=== PATIENT | female | born 1985 | race Caucasian/White ===

== ENCOUNTER 2018-04-16 01:35 | Emergency (ER) | payer BC ==
[2018-04-16 02:10] LABS: #Basophils 0.1 thou/uL (0.0-0.2); #Eosinphils 0.2 thou/uL (0.0-0.7); #Lymphocytes 3.6 thou/uL (1.20-3.40); #Monocytes 0.8 thou/uL (0.11-0.59); #Neutrophils 3.7 thou/uL (1.40-6.50); %Basophils 0.8 % (0.0-1.0); %Eosinophils 1.9 % (0.0-10.0); %Lymphocytes 43.2 % (21.0-51.0); %Neutrophils 44.2 % (42.0-75.0); Hemoglobin 14.5 g/dL (12.0-16.0); Mean Corpuscular HGB CONC 34.7 g/dL (32.0-36.0); Mean Corpuscular Hemoglobin 31.5 pg (27.0-31.0); Mean Corpuscular Volume 90.9 fL (78.0-98.0); Mean Platelet Volume 7.3 fL (7.4-10.4); Platelet Count 299 thou/uL (130-400); RBC Distribution Width 10.6 % (11.5-14.5); White Blood Cell (WBC) Count 8.3 thou/uL (4.8-10.8)
[2018-04-16 02:28] LABS: BHCG - Serum Negative (NEGATIVE); Pregs Control Background? CLEAR/WHITE (CLR/WHITE); Pregs Control Bar Appear? YES (CONTROL BAR)
[2018-04-16 02:33] LABS: ALT (SGPT) 34 U/L (8-55); AST (SGOT) 27 U/L (5-34); Albumin 4.9 g/dL (3.5-5.0); Alkaline Phosphatase 69 U/L (40-150); Anion Gap 16 mmol/L (10-20); BUN (Urea Nitrogen) 12 mg/dL (7.0-18.7); Bilirubin, Total 0.4 mg/dL (0.2-1.2); CK (CPK) 70 U/L (29-168); Calc. Creatinine Clearance 0 mL/min (70-130); Calcium 11.4 mg/dL (7.8-10.44); Carbon Dioxide 25 mmol/L (22-29); Chloride 102 mmol/L (98-107); Estimated GFR-MDRD 73; Globulin 3.5 g/dL (2.4-3.5); Glucose 97 mg/dL (70-105); Potassium 3.5 mmol/L (3.5-5.1); Protein, Total 8.4 g/dL (6.0-8.3); Sodium 139 mmol/L (136-145)
[2018-04-16 02:35] LABS: CKMB 0.6 ng/mL (0-6.6); Troponin I Less than 0.010 ng/mL (< 0.028)
[2018-04-16] MEDS ORDERED: Lorazepam 1 MG TAB ONE (02:38)
--- NOTE | 2018-04-16 08:11 | RAD ---
PORTABLE CHEST: Date: 04/16/18 PROVIDED CLINICAL HISTORY: Chest pain. FINDINGS: No comparison. The cardiac silhouette appears prominent, which is likely at least partially on the basis of portable technique. There is no focal consolidation, pleural fluid, or pneumothorax. IMPRESSION: No evidence for an acute cardiopulmonary process. POS: [facility]
--- NOTE | 2018-04-23 12:19 | EKG ---
Test Reason : Blood Pressure : / mmHG Vent. Rate : 073 BPM Atrial Rate : 073 BPM P-R Int : 148 ms QRS Dur : 086 ms QT Int : 392 ms P-R-T Axes : 000 023 -05 degrees QTc Int : 431 ms Normal sinus rhythm T wave abnormality, consider anterior ischemia Abnormal ECG Confirmed by MARC HERNANDEZ ([id number]), purchasing expeditor MARILIA HELMS ([id number]) on 04/23/2018 12:19:11 PM Referred By: Confirmed By:MARC HERNANDEZ
== END 2018-04-16 03:27 | disposition home or self-care (01) ==
LOC: ERS 01:35
DX: F41.9 Anxiety disorder, unspecified (principal); R07.2 Precordial pain; E03.9 Hypothyroidism, unspecified; F32.9 Major depressive disorder, single episode, unspecified
CPT/HCPCS: 36415; 71045; 80053; 82553; 83880; 84484; 84703; 85025; 93005

== ENCOUNTER 2020-04-05 23:03 | Day surgery (SDC) | payer BC ==
[2020-04-05 23:28] VITALS: BP 129/76; TEMP 99.1; BMI 37.4
[2020-04-06] MEDS ORDERED: hydrALAZINE 20 MG/ML VIAL SLOW IVP PRN (00:07)
[2020-04-06] MEDS ORDERED: Ondansetron ODT 4 MG TAB PO PRN (00:07)
[2020-04-06] MEDS ORDERED: Sodium Chloride 0.9% 500 ML IV SCH (00:15)
[2020-04-06] MEDS ORDERED: Ondansetron PF 4 MG/2 ML Vial ONE (00:20)
--- NOTE | 2020-04-06 00:20 | PDOC.LDHP ---
Labor and Delivery H&P Chief complaint: abdominal pain (left flank) HPI: Patient is a 34 yo at 28.1 wga who presents with complaint of left- sided abdominal pain that started at approximately 1900 this evening. Says pain came on all of a sudden in her left back, flank, and side. Describes pain as a constant burning, significantly increasing when she touches the area and with movements. She additionally complains of some intermittent cramping in her LUQ and epigastric regions. Says she has eaten today but has not been drinking much fluids. Symptoms have been accompanied by some nausea, no vomiting. Denies any fever, chills, diarrhea, constipation, dysuria, frequency, vaginal bleeding, vaginal discharge, loss of fluid. Is still feeling baby move. Denies any contractions and none visualized on monitor or palpated. Current gestational age (weeks): 28 (28.1 weeks) Due date: 06/27/20 Dating criteria: first trimester ultrasound Grav: 2 Para: 0 (0010) OB History Details: Hx of SAB at 5 wga Hx of IVF, current is her 6th transfer Low lying placenta, is 1.56 cm from os as of 03/11/2020 Followed by MFM during this due to class II Obesity and IVF Current complications: other (class II obesity, IVF ) Abnormal US findings: No Past Medical History: Rheumatoid arthritis-currently taking Plaquenil Hypothyroid-currently taking Levothyroxine IVF , hx of recurrent miscarriages-currently taking Lovenox, Aspirin Hx of DVT Hx of kidney stones (last episode 14 years ago) Hx of chickenpox in childhood Multiple episodes of dysuria this -takes Pyridium prn, multiple negative urine cultures Anxiety-has Hydroxyzine prn Depression PCOS Seasonal allergies Current medications: pre- vitamins, other (ASA, Lovenox, Hydroxychloroquine , Hydroxyzine, Levothyroxine, Pyridium, Singulair) Previous surgical history: other (tonsillectomy, egg retrieval x 2) Allergies/Adverse Reactions: Allergies Allergy/AdvReac Type Severity Reaction Status Date / Time Iodinated Contrast Media Allergy Verified 04/05/20 23:13 Social history: none - Physical Exam Vital signs reviewed and normal: yes General: NAD, resting Heart: RRR Lungs: CTAB Abdomen: other (gravid, TTP with light touch in left back and left flank in T9- 10 dermatome region, bowel sounds+, fundus palpable above umbilicus is nontender ) Extremeties: no edema FHT: category 1 (moderate variability, multiple accels, FHR 135 baseline, no contractions) [employer] contractions every: none seen - OB Labs Blood type: O RH: positive Antibody Screen: unknown HIV: unknown RPR: unknown HEPSAg: unknown 1 hour GCT: negative (96) GBS: negative Urine drug screen: not done Additional Labs: 1st trimester & 2nd trimester genetic screens normal Pap test December 2019 NILM with negative HPV TSH 2.5 in January 2020 Gonorrhea negative Chlamydia negative - Assessment 34 yo at 28.1 wga presents with left flank pain: #Abdominal/Flank Pain -suspicion for Shingles given exam and history, r/o UTI, pancreatitis, electrolyte abnormality, infectious process -obtain CBC, CMP, UA, Lipase -give 500 mL IVF bolus for mild dehydration -Zofran for nausea #Second Trimester -place on continuous external monitoring--currently FHT 135 with moderate variability, + accels, no decels seen -follows with Light at [facility] Dispo: Stable, continue to monitor on L&D and obtain lab workup. Discussed plan with Laborist Dr. Jackson. ___ Addendum Update, 04/06/2020, 0130 Patient feeling better after fluids and Zofran. Says no longer having any cramping, just having some pain when she touches her left side. Reviewed labwork with patient, all normal. Baby has continued to have cat 1 strip on external monitor. Patient most likely experiencing early Herpes Zoster/Shingles outbreak. Will send 10 day course of Acyclovir. Patient already has appointment with Chiara at [facility] on Apr 10, encouraged to keep this appointment. Return precautions given. Discharged patient to home in good condition.
[2020-04-06 00:48] LABS: #Eosinphils 0.1 thou/uL (0.0-0.7); #Lymphocytes 2.1 thou/uL (1.20-3.40); #Monocytes 0.9 thou/uL (0.11-0.59); #Neutrophils 7.6 thou/uL (1.40-6.50); %Basophils 0.1 % (0.0-1.0); %Eosinophils 1.3 % (0.0-10.0); %Lymphocytes 19.6 % (21.0-51.0); %Monocytes 8.7 % (0.0-10.0); %Neutrophils 70.3 % (42.0-75.0); Hemoglobin 12.2 g/dL (12.0-16.0); Mean Corpuscular Hemoglobin 32.2 pg (27.0-31.0); Mean Corpuscular Volume 91.9 fL (78.0-98.0); Mean Platelet Volume 8.5 fL (7.4-10.4); Platelet Count 216 thou/uL (130-400); Red Blood Cell (RBC) Count 3.81 mill/uL (4.20-5.40); White Blood Cell (WBC) Count 10.7 thou/uL (4.8-10.8)
[2020-04-06 00:53] LABS: Bacteria/HPF None Seen HPF (None Seen); Bilirubin Negative (Negative); Blood, Urine Negative (Negative); Clarity Turbid (Clear); Glucose, Urine (Dipstick) Normal (Negative); Ketone, Urine Negative (Negative); Leukocyte Negative Leu/uL (Negative); Nitrite Negative (Negative); Protein, Urine (Dipstick) Negative (Neg-Trace); RBC/HPF 0-3 HPF (0-3); Specific Gravity, Urine 1.011 (1.002-1.036); Squamous Epithelial 0-3 HPF (0-3); Urobilinogen Normal mg/dL (Less than 2); WBC/HPF 0-3 HPF (0-3); pH, Urine 7.5 (5.0-9.0)
[2020-04-06 00:56] LABS: Urine Culture Reflex No No
[2020-04-06 01:09] LABS: ALT (SGPT) 11 U/L (8-55); AST (SGOT) 14 U/L (5-34); Albumin 3.9 g/dL (3.5-5.0); Alkaline Phosphatase 73 U/L (40-110); Anion Gap 15 mmol/L (10-20); BUN (Urea Nitrogen) 6 mg/dL (7.0-18.7); Bilirubin, Total 0.2 mg/dL (0.2-1.2); Calc. Creatinine Clearance 196 mL/min (70-130); Calcium 9.8 mg/dL (7.8-10.44); Carbon Dioxide 21 mmol/L (22-29); Chloride 107 mmol/L (98-107); Estimated GFR-MDRD Greater than 90; Globulin 2.8 g/dL (2.4-3.5); Glucose 102 mg/dL (70-105); Lipase 29 U/L (8-78); Potassium 3.9 mmol/L (3.5-5.1); Protein, Total 6.7 g/dL (6.0-8.3); Sodium 139 mmol/L (136-145)
== END 2020-04-06 01:44 | disposition home or self-care (01) ==
LOC: L&D/OP 23:03
PROVIDERS: ATTEND Student in an Organized Health Care Education/Training Program
DX: O99.89 Other specified diseases and conditions complicating pregnancy, childbirth and the puerperium (principal); R10.9 Unspecified abdominal pain; M06.9 Rheumatoid arthritis, unspecified; O99.213 Obesity complicating pregnancy, third trimester; E66.9 Obesity, unspecified; O99.343 Other mental disorders complicating pregnancy, third trimester; F41.9 Anxiety disorder, unspecified; F32.9 Major depressive disorder, single episode, unspecified; O09.813 Supervision of pregnancy resulting from assisted reproductive technology, third trimester; O09.293 Supervision of pregnancy with other poor reproductive or obstetric history, third trimester; Z3A.28 28 weeks gestation of pregnancy; Z79.899 Other long term (current) drug therapy; Z91.041 Radiographic dye allergy status
CPT/HCPCS: 36415; 80053; 81001; 83690; 85025; 96360; 96361; 96375; 99283; J2405

== ENCOUNTER 2020-05-25 17:07 | Day surgery (SDC) | payer BC ==
[2020-05-25] MEDS ORDERED: hydrALAZINE 20 MG/ML VIAL SLOW IVP PRN (17:40)
[2020-05-25 17:45] VITALS: BMI 38.4
--- NOTE | 2020-05-25 17:59 | PDOC.FPROB ---
FMR OB H&P: HPI - History of Present Illness Chief Complaint: Abdominal pain Indentification: 34yo @ 35.2 History of Present Illness: Pt stated that today around 1400 she started to develop back pain. Prior to this she had just had a flat tire and had walked a mile. A bit later she was having a bowel movement when she developed abdominal cramping. She stated that afterwards the cramping persisted and she became concerned she was having contractions. She called L&D and was told to time them and come in if they were 5-10 minutes apart and were worsening. She felt the pain was getting worse and they were happening every ~8 minutes. She also noted the when she wiped her vagina after using the restroom she saw some pink on the tissue, this occurred twice today but has not continued through the afternoon. She denies any kevin vaginal bleeding, new or changing vaginal discharge, loss of fluid, nausea, vomiting, diarrhea, fever, chills. 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: Normal pap, no hx of STI - Surgical History Sx History: Oocyte retrieval and transfer - Social History Social History: Lifes with , denies any tobacco, alcohol, or illicit drugs - Family History Family History: Non contributory FMR OB H&P: Medications - Current Home Medications: Medication Instructions Recorded Confirmed Type Aspirin [Children's Aspirin] 81 mg PO DAILY 04/05/20 05/25/20 History Certolizumab Pegol [Cimzia] 400 mg SC Q28D 04/05/20 05/25/20 History Cholecalciferol (Vitamin D3) 1,000 unit PO DAILY 04/05/20 05/25/20 History [Vitamin D] Enoxaparin Sodium [Lovenox] 40 mg SC DAILY 04/05/20 05/25/20 History Hydroxychloroquine Sulfate 400 mg PO BID 04/05/20 05/25/20 History [Plaquenil] Loratadine [Claritin] 10 mg PO DAILY 04/05/20 05/25/20 History Montelukast Sodium [Singulair] 10 mg PO DAILY 04/05/20 05/25/20 History PNV No.118/Iron Fumarate/FA 1 tablet PO DAILY 04/05/20 05/25/20 History [ 19 Chewable Tablet] Ubidecarenone [Co Q-10] 100 mg PO DAILY 04/05/20 05/25/20 History hydrOXYzine [Atarax] 10 mg PO PRN PRN 04/05/20 05/25/20 History predniSONE [Prednisone] 5 mg PO PRN PRN 04/05/20 05/25/20 History Ondansetron [Zofran ODT] 4 mg PO Q6H PRN #10 tab 04/06/20 05/25/20 Rx Allergies/Adverse Reactions: Allergies Allergy/AdvReac Type Severity Reaction Status Date / Time Iodinated Contrast Media Allergy Verified 05/25/20 17:20 FMR OB H&P: ROS - Review of Systems General: denies: fever/chills, fatigue, recent trauma Eyes: denies: vision changes, scotomas ENT: denies: nasal congestion, sore throat Cardiovascular: denies: chest pain, edema Gastrointestinal: reports: abdominal pain, cramping. denies: nausea, vomiting, diarrhea, constipation, bright red blood Genitourinary (Female): reports: vaginal bleeding (pink when she wiped this morning). denies: dysuria, polyuria, contractions Musculoskeletal: reports: pain (back pain). denies: swelling, decrease range of motion Neurologic: denies: numbness, weakness Integumentary: denies: rash, lesions Endocrine: denies: polydipsia, polyuria Hematologic/Lymphatic: reports: other (bruising from lovenox) Psychological: reports: depression, anxiety FMR OB H&P: Vital Signs - Heart Tones Baseline: 125 Variability: moderate Acceleration: present Deceleration: absent Category: category 1 [place] contractions every: no discernable contractions FMR OB H&P: Physical Exam - Physical Exam General: awake, alert and oriented Deviation from normal: Appears to be in moderate amount of distress HEENT: EOMI, MMM, no scleral icterus Heart: RRR, normal S1/S2, no murmurs/rubs/gallops, pulses present, no edema General: CTAB, no respiratory distress, good air movement Abdomen: soft, gravid, no masses Deviation from normal: epigastric tenderness Musculoskeletal: FROM in all four extremities Deviation from normal: diffuse paraspinal tenderness, no CVA tenderness Skin: no rash, good tugor Deviation from normal: bruising to anterior abdomen from lovenox injections Psychiatric: intact recent and remote memory, good judgement and insight, other (anxious) - Pelvic Exam SVE: C/Th/H FMR OB H&P: A/P Disposition: 3rd Trimester IUP - will get UA to look for signs of stone or infection - BPP to assess status due to difficulty getting consistent tracing - monitor for signs of contractions, none identified currently - pt is currently closed/thick/high, will monitor for change - source likely musculoskeletal in nature due to increased physical exertion today from baseline 1811: Plan- As above, UA, BPP, PO hydrate, monitor Update: 1857 - UA clear. BPP 03/09. Posterior anmol placenta away from os. Vertex. JOSE 11. Cervix >3cm. Pain has resolved at this point. Will DC home. Discussed in depth labor precautions and reason to return. Discussion: Date/Time: 05/25/20 799 This H&P was discussed with Dr. Dubon who agrees with the above documentation and plan. Addendum - Attending - Attending Attestation Date/Time: 05/29/20 1018 I personally evaluated the patient and discussed the management with Dr. Aguayo I agree with the History, Examination, Assessment and Plan documented above with any addition or exceptions noted below.
[2020-05-25 18:30] LABS: Bacteria/HPF None Seen HPF (None Seen); Bilirubin Negative (Negative); Blood, Urine Negative (Negative); Clarity Clear (Clear); Glucose, Urine (Dipstick) Normal (Negative); Ketone, Urine Negative (Negative); Leukocyte Negative Leu/uL (Negative); Nitrite Negative (Negative); Protein, Urine (Dipstick) Negative (Neg-Trace); RBC/HPF 0-3 HPF (0-3); Squamous Epithelial 0-3 HPF (0-3); Urobilinogen Normal mg/dL (Less than 2); WBC/HPF 0-3 HPF (0-3)
--- NOTE | 2020-05-25 18:57 | ULT ---
BIOPHYSICAL PROFILE: 05/25/20 HISTORY: Pelvic pain. Real time imaging of the pelvis shows a single viable intrauterine in a vertex presentation . The placenta is more posterior and fundal in location. The amniotic fluid index is calculated at 11 .4. Visually the fluid appears slightly diminished but there is a pocket of fluid greater than 2 cm. heart rate is 141 beats per minute. Cervical canal length is not well assessed on this exam. biophysical profile score is as follow s: tone: 2 breathin movements: 2 Amniotic fluid: 2 IMPRESSION: biophysical profile is 8 of a possible 8. POS: OFF
[2020-05-26] MEDS ORDERED: FLU VACC QS2020-21(6MOS UP)/PF 60 MCG/0.5 ML SYRINGE IM ONE (09:00)
== END 2020-05-25 19:05 | disposition home health service (06) ==
LOC: L&D/OP 17:07
PROVIDERS: ATTEND Student in an Organized Health Care Education/Training Program
DX: O99.891 Other specified diseases and conditions complicating pregnancy (principal); R10.2 Pelvic and perineal pain; M54.9 Dorsalgia, unspecified; M06.9 Rheumatoid arthritis, unspecified; O47.03 False labor before 37 completed weeks of gestation, third trimester; O09.813 Supervision of pregnancy resulting from assisted reproductive technology, third trimester; O09.293 Supervision of pregnancy with other poor reproductive or obstetric history, third trimester; O99.343 Other mental disorders complicating pregnancy, third trimester; F41.9 Anxiety disorder, unspecified; F32.9 Major depressive disorder, single episode, unspecified; Z3A.35 35 weeks gestation of pregnancy; Z79.82 Long term (current) use of aspirin; Z79.899 Other long term (current) drug therapy; Z91.041 Radiographic dye allergy status
CPT/HCPCS: 76819; 81003; 99283

== ENCOUNTER 2020-06-07 20:34 | Day surgery (SDC) | payer BC ==
[2020-06-07] MEDS ORDERED: hydrALAZINE 20 MG/ML VIAL SLOW IVP PRN (20:55)
--- NOTE | 2020-06-07 21:02 | PDOC.FPROB ---
FMR OB H&P: HPI - History of Present Illness Chief Complaint: Abdominal pain Indentification: 34yo at 37.1wks History of Present Illness: 34yo at 37.1wks presents for abdominal pain that started at 7:20 but quickly worsened in intensity. Reports pain was 8/10 at home but has improved to 4-5/10 here. Pain is mostly right sided, constant but worsens with position changes and intermittently when she is laying. Denies nausea, vomiting, dysuria, hematuria. Has hx of kidney stones 14 years ago. Has hx of RA, PCOS, Anxiety/Depression. On hydroxyzine, plaquenil, steroids prn, Symsia. Primary Care Physician: Sloane Guadarrama FMR OB H&P: Current - Care : 2 Para: 0 Gestational age: 37.1 Course/Complications: IVF otherwise uncomplicated FMR OB H&P: History - Past Medical History PMH: RA, Anxiety/depression, PCOS - OB History OB History: Hx of miscarriage in 1T, this baby was IVF - Surgical History Sx History: Tonsils & adenoids. Hx of egg retrieval - Social History Social History: Denies tobacco, alcohol and drug use - Family History Family History: RA FMR OB H&P: Medications - Current Home Medications: Medication Instructions Recorded Confirmed Type Aspirin [Children's Aspirin] 81 mg PO DAILY 04/05/20 05/25/20 History Certolizumab Pegol [Cimzia] 400 mg SC Q28D 04/05/20 05/25/20 History Cholecalciferol (Vitamin D3) 1,000 unit PO DAILY 04/05/20 05/25/20 History [Vitamin D] Enoxaparin Sodium [Lovenox] 40 mg SC DAILY 04/05/20 05/25/20 History Hydroxychloroquine Sulfate 400 mg PO BID 04/05/20 05/25/20 History [Plaquenil] Loratadine [Claritin] 10 mg PO DAILY 04/05/20 05/25/20 History Montelukast Sodium [Singulair] 10 mg PO DAILY 04/05/20 05/25/20 History PNV No.118/Iron Fumarate/FA 1 tablet PO DAILY 04/05/20 05/25/20 History [ 19 Chewable Tablet] Ubidecarenone [Co Q-10] 100 mg PO DAILY 04/05/20 05/25/20 History hydrOXYzine [Atarax] 10 mg PO PRN PRN 04/05/20 05/25/20 History predniSONE [Prednisone] 5 mg PO PRN PRN 04/05/20 05/25/20 History Ondansetron [Zofran ODT] 4 mg PO Q6H PRN #10 tab 04/06/20 05/25/20 Rx Allergies/Adverse Reactions: Allergies Allergy/AdvReac Type Severity Reaction Status Date / Time Iodinated Contrast Media Allergy Verified 05/25/20 17:20 FMR OB H&P: ROS - Review of Systems General: denies: fever/chills, fatigue Eyes: denies: vision changes, floaters ENT: denies: nasal congestion, rhinorrhea Cardiovascular: denies: chest pain, edema Respiratory: denies: cough, congestion, shortness of breath Gastrointestinal: reports: abdominal pain. denies: nausea, vomiting Genitourinary (Female): denies: dysuria, hematuria, polyuria, vaginal discharge, vaginal pain, vaginal bleeding, contractions Musculoskeletal: denies: pain, swelling Neurologic: denies: weakness, headache Integumentary: denies: rash, lesions Psychological: reports: depression, anxiety FMR OB H&P: Vital Signs - Maternal Vital signs: 117/77, HR 113 - Heart Tones Baseline: 150 Variability: moderate Acceleration: present Deceleration: absent Category: category 1 FMR OB H&P: Physical Exam - Physical Exam General: NAD, awake, alert and oriented HEENT: normocephalic and atraumatic, MMM, conjunctiva clear, grossly normal hearing Neck: supple, trachea midline Heart: RRR, no murmurs/rubs/gallops General: CTAB, no respiratory distress Abdomen: soft, gravid, non-tender, other (right sided tenderness on back) Musculoskeletal: pulses present, no misalignment/asymmetry Neurological: no focal deficit Skin: no rash, good tugor Lymphatic: no unusual bruising or bleeding Psychiatric: intact recent and remote memory, good judgement and insight, normal mood and affect FMR OB H&P: A/P Disposition: 34yo at 37.1wks presents for abdominal pain Suspect Kidney stone - US and UA normal. Afebrile, Abdomen nontender. Pain spontaneously resolved. Likely pt passed stone while here. Will discharge with return precautions. Discussion: Date/Time: 06/07/202056 This H&P was discussed with Dr. Mcdaniel who agree with the above documentation and plan. Addendum - Attending - Attending Attestation Date/Time: 06/08/20654 I personally evaluated the patient and discussed the management with Dr. Washington. I agree with the History, Examination, Assessment and Plan documented above. Significant pain now resolved. Has hx kidney stones. This pain possibly due to small kidney stones that she has now passed. D/c home with precautions.
[2020-06-07 21:23] VITALS: BMI 44.2
[2020-06-07 21:27] LABS: Bilirubin Negative (Negative); Blood, Urine Negative (Negative); Clarity Clear (Clear); Glucose, Urine (Dipstick) 30 mg/dL (Negative); Ketone, Urine Negative (Negative); Leukocyte Negative Leu/uL (Negative); Nitrite Negative (Negative); Protein, Urine (Dipstick) Negative (Neg-Trace); Specific Gravity, Urine 1.015 (1.002-1.036); Urobilinogen Normal mg/dL (Less than 2); pH, Urine 6.5 (5.0-9.0)
[2020-06-07 21:28] LABS: Bacteria/HPF None Seen HPF (None Seen); RBC/HPF 0-3 HPF (0-3); Squamous Epithelial 0-3 HPF (0-3); WBC/HPF 0-3 HPF (0-3)
[2020-06-07 21:34] LABS: Urine Culture Reflex No No
--- NOTE | 2020-06-07 22:44 | ULT ---
US Renal Bilateral STANDARD HISTORY: Right flank pain. Patient is 37 weeks COMPARISON: None. FINDINGS: The right kidney measures 13.7 cm in length and the left kidney measures 15.4 cm in length. No focal mass or hydronephrosis is seen. Cortical echogenicity and thickness is normal. No shadowing calculi are noted. The bladder is unremarkable. IMPRESSION: Normal exam
== END 2020-06-07 22:47 | disposition home or self-care (01) ==
LOC: L&D/OP 20:34
PROVIDERS: ATTEND Advanced Practice Midwife
DX: O99.891 Other specified diseases and conditions complicating pregnancy (principal); R10.9 Unspecified abdominal pain; M06.9 Rheumatoid arthritis, unspecified; O99.283 Endocrine, nutritional and metabolic diseases complicating pregnancy, third trimester; E28.2 Polycystic ovarian syndrome; O09.813 Supervision of pregnancy resulting from assisted reproductive technology, third trimester; O09.293 Supervision of pregnancy with other poor reproductive or obstetric history, third trimester; Z3A.37 37 weeks gestation of pregnancy; Z79.82 Long term (current) use of aspirin; Z79.899 Other long term (current) drug therapy; Z91.041 Radiographic dye allergy status
CPT/HCPCS: 76770; 81001; 99283

== ENCOUNTER 2020-06-18 16:04 | Day surgery (SDC) | payer BC ==
[2020-06-18] MEDS ORDERED: hydrALAZINE 20 MG/ML VIAL SLOW IVP PRN (16:07)
[2020-06-18 16:32] VITALS: BMI 39.2
[2020-06-18 16:51] VITALS: BP 121/69; TEMP 98.9
[2020-06-18 17:10] LABS: #Eosinphils 0.1 thou/uL (0.0-0.7); #Lymphocytes 2.2 thou/uL (1.20-3.40); %Basophils 0.4 % (0.0-1.0); %Lymphocytes 21.3 % (21.0-51.0); %Monocytes 9.7 % (0.0-10.0); %Neutrophils 67.6 % (42.0-75.0); Hemoglobin 11.2 g/dL (12.0-16.0); Mean Corpuscular HGB CONC 32.5 g/dL (32.0-36.0); Mean Corpuscular Hemoglobin 29.3 pg (27.0-31.0); Mean Corpuscular Volume 90.3 fL (78.0-98.0); Mean Platelet Volume 8.7 fL (7.4-10.4); Platelet Count 227 thou/uL (130-400); RBC Distribution Width 12.3 % (11.5-14.5); Red Blood Cell (RBC) Count 3.82 mill/uL (4.20-5.40); White Blood Cell (WBC) Count 10.4 thou/uL (4.8-10.8)
[2020-06-18 17:36] LABS: ALT (SGPT) 9 U/L (8-55); AST (SGOT) 18 U/L (5-34); Albumin 3.6 g/dL (3.5-5.0); Alkaline Phosphatase 137 U/L (40-110); Anion Gap 16 mmol/L (10-20); BUN (Urea Nitrogen) 7 mg/dL (7.0-18.7); Bilirubin, Total 0.2 mg/dL (0.2-1.2); Calc. Creatinine Clearance 223 mL/min (70-130); Calcium 9.2 mg/dL (7.8-10.44); Carbon Dioxide 19 mmol/L (22-29); Chloride 106 mmol/L (98-107); Globulin 3.5 g/dL (2.4-3.5); Glucose 91 mg/dL (70-105); Potassium 3.9 mmol/L (3.5-5.1); Protein, Total 7.1 g/dL (6.0-8.3); Sodium 137 mmol/L (136-145)
--- NOTE | 2020-06-18 17:40 | PDOC.LDHP ---
Labor and Delivery H&P Chief complaint: other (BP workup) HPI: 34 y/o at 38w5d, patient of Becca Guadarrama, presents from clinic for BP workup. Had a 140/90 in clinic. Denies PIH sx, VB, LOF, ctx, or decreased FM. Had some chest tightness but attributes it to anxiety. ROS neg for HEENT, cv, pulm, gi, gu, neuro, psych, skin, musculoskeletal or constitutional symptoms other than mentioned above. OB History Details: IVF 1 prior SAB Current complications: none Past Medical History: RA, anxiety/depression, PCOS Current medications: pre-shanique vitamins, other (ASA 81mg, Cimzia, Vit D3, Love nox (last dose 9pm 06/17), Plaquenel, Claritin, Singluair, Co Q-10, Atarax, PRednisone, Zofran) Previous surgical history: other (Tonsils and adenoids, egg retrieval) Allergies/Adverse Reactions: Allergies Allergy/AdvReac Type Severity Reaction Status Date / Time Iodinated Contrast Media Allergy Verified 06/18/20 16:36 Social history: none - Physical Exam Vital signs reviewed and normal: yes General: NAD, resting Lungs: nonlabored breathing Abdomen: gravid Extremeties: no edema FHT: category 1 (130s, mod variability, + accels, no decels) [place] contractions every: none - Assessment 34 y/o at 38w5d with no e/o Preeclampsia. BPs all normal. Labs wnl. EKG with no e/o acute process. Chest tightness improved with Atarax. status reassuring with reactive NST. - Plan -: D/c home with precautions. Advised to keep appointment for induction .
[2020-06-18 18:23] LABS: Creatinine, Urine 97.68 mg/dL (47-110)
--- NOTE | 2020-06-21 07:03 | EKG ---
Test Reason : CP Blood Pressure : / mmHG Vent. Rate : 106 BPM Atrial Rate : 106 BPM P-R Int : 138 ms QRS Dur : 076 ms QT Int : 326 ms P-R-T Axes : 053 050 009 degrees QTc Int : 433 ms Sinus tachycardia Possible Left atrial enlargement Borderline ECG Confirmed by HEENA KNAPP MD ([id number]) on 06/21/2020 7:03:09 AM Referred By: ANGI Confirmed By:HEENA KNAPP MD
== END 2020-06-18 20:47 | disposition home or self-care (01) ==
LOC: L&D/OP 16:04
PROVIDERS: ATTEND Student in an Organized Health Care Education/Training Program
DX: O99.891 Other specified diseases and conditions complicating pregnancy (principal); R03.0 Elevated blood-pressure reading, without diagnosis of hypertension; M06.9 Rheumatoid arthritis, unspecified; O99.343 Other mental disorders complicating pregnancy, third trimester; F41.9 Anxiety disorder, unspecified; F32.9 Major depressive disorder, single episode, unspecified; O99.283 Endocrine, nutritional and metabolic diseases complicating pregnancy, third trimester; E28.2 Polycystic ovarian syndrome; O09.813 Supervision of pregnancy resulting from assisted reproductive technology, third trimester; O09.293 Supervision of pregnancy with other poor reproductive or obstetric history, third trimester; Z3A.38 38 weeks gestation of pregnancy; Z79.82 Long term (current) use of aspirin; Z79.899 Other long term (current) drug therapy; Z91.041 Radiographic dye allergy status
CPT/HCPCS: 80053; 82570; 84156; 85025; 93005; 93010; 99284

== ENCOUNTER 2020-06-20 18:00 | Inpatient (IN) | payer BC ==
[~2020-06-20 18:00] MED LIST: Bupivacaine/Epinephrine 0.25% 30 ML VIAL ONE
[2020-06-20] MEDS ORDERED: NS / Oxytocin 40 units/1000ml 1,000 ML IV PRN (19:14)
[2020-06-20] MEDS ORDERED: Ibuprofen 800 MG TAB PO PRN (19:14)
[2020-06-20] MEDS ORDERED: Misoprostol 200 MCG TAB PR PRN (19:14)
[2020-06-20] MEDS ORDERED: Butorphanol Tartrate 1 MG/ML VIAL SLOW IVP PRN ×2 (19:14→20:52)
[2020-06-20] MEDS ORDERED: Lidocaine 1% (PF) 30 ML VIAL SC PRN (19:14)
[2020-06-20] MEDS ORDERED: HYDROcodone/Acetaminophen 5/325 mg Tablet PO PRN ×2 (19:14)
[2020-06-20] MEDS ORDERED: NS w/ Oxytocin 10 units 500 ML IV SCH (19:14)
[2020-06-20] MEDS ORDERED: hydrALAZINE 20 MG/ML VIAL SLOW IVP PRN (19:14)
[2020-06-20] MEDS ORDERED: Penicillin G Potassium 5 MILL.UNITS VIAL ONE (19:32)
[2020-06-20 20:12] VITALS: BMI 39.2
[2020-06-20] MEDS: Misoprostol 100 MCG TAB VAG SCH (20:28)
[2020-06-20] MEDS: Lactated Ringer's 1,000 ML IV SCH (20:29)
[2020-06-20] MEDS ORDERED: Penicillin G Potassium 5 MILL.UNITS in Sodium Chloride 0.9% 100 ML IVPB SCH (20:30)
[2020-06-20 20:35] LABS: Hemoglobin 11.5 g/dL (12.0-16.0); Mean Corpuscular HGB CONC 34.8 g/dL (32.0-36.0); Mean Corpuscular Volume 89.1 fL (78.0-98.0); Mean Platelet Volume 8.7 fL (7.4-10.4); Platelet Count 242 thou/uL (130-400); RBC Distribution Width 12.1 % (11.5-14.5)
--- NOTE | 2020-06-20 20:40 | PDOC.LDHP ---
Labor and Delivery H&P Chief complaint: scheduled induction HPI: Patient arrives for her elective IOL at term Current gestational age (weeks): 39 Due date: 06/27/20 Dating criteria: other (IVF embryo transfer) Grav: 2 Para: 0 OB History Details: Infertility. 6 transfers 1 SAB at 5.3weeks Current complications: other Past Medical History: Rhematoid arthritis Anxiety Depression Hypothyroidism PCOS Class III obesity Current medications: pre-shanique vitamins, other (Acyclovir 400mg tablet Aspirin 81 mg PO QD Cholecalicferol Claritin 10mg PO QD Coenzyme Q10 100mg enoxaparin 40mg SC QD (last dose on) Hydroxychloroquine 400mg PO QD, Hydroxyzine 10mg TID PRN anxiety, Motelukast 10mg POQD) Previous surgical history: other (tonsillectomy. Oocyte recovery IVF embryo transfer x 6) Allergies/Adverse Reactions: Allergies Allergy/AdvReac Type Severity Reaction Status Date / Time Iodinated Contrast Media Allergy Verified 06/18/20 16:36 Social history: none - Physical Exam General: NAD Lungs: nonlabored breathing Abdomen: gravid Extremeties: trace edema - Vaginal Exam cm dilated: 1 Effacement: 25% Station: -3 - OB Labs Blood type: O RH: positive Antibody Screen: negative HIV: negative RPR: negative HEPSAg: negative GBS: positive Urine drug screen: negative Rubella: immune Additional Labs: TSH 2.5-2.8 - Assessment L&D Assessment: elective induction at term - Plan Plan: admit to L&D, cervical ripening (using PV cytotec), GBS antibiotic prophylaxis, informed consent obtained, anesthesia consult for pain management
[2020-06-20] MEDS ORDERED: Zolpidem Tartrate 5 MG TAB PO PRN (20:52)
[2020-06-20 21:08] LABS: Syphilis Antibody Nonreactive (Nonreactive); Syphilis Antibody Index 0.04 S/CO (<1.00 Non-Reactive)
[2020-06-20 21:25] VITALS: TEMP 98.9
[2020-06-20 22:44] LABS: HBSAg Index 0.17 S/CO (0-0.99); Hep B Surf Ag Non-Reactive S/CO (NonReactive)
[2020-06-20] MEDS: Hydroxychloroquine Sulfate 200 MG TAB PO SCH (23:04)
[2020-06-21] MEDS: hydrOXYzine 10 MG TAB PO PRN ×3 (00:12→18:06)
[2020-06-21] MEDS: Pen G 2.5 MILL.UNITS/50 ML BAG IVPB SCH ×6 (00:12→21:35)
[2020-06-21] MEDS: Misoprostol 100 MCG TAB VAG SCH ×2 (06:11→19:59)
[2020-06-21] MEDS: Hydroxychloroquine Sulfate 200 MG TAB PO SCH ×2 (10:10→21:15)
[2020-06-21] MEDS: Acetaminophen 500 MG TAB PO PRN ×2 (10:10→19:26)
--- NOTE | 2020-06-21 11:58 | PDOC.BPN ---
- Brief Progress Note Encounter Date: 06/21/20 Encounter Time: 08:15 Pt is doing well. Coping ok but is having backpain. Better with standing. O: Vitals NML, Cat 1 strip. cytotec x 3 doses A: for IOL at term P: continue POC> Cytoec for another dose. Will reevaulate for balloon vs pit after 4th dose
[2020-06-21] MEDS ORDERED: Fentanyl 4 mcg/Bup 0.1% Cadd 100 ML in Premix Bag 1 BAG EPIDURAL SCH (22:00)
[2020-06-21] MEDS ORDERED: Fentanyl 100 MCG/2 ML VIAL ONE (22:28)
[2020-06-21] MEDS: Lactated Ringer's 1,000 ML IV SCH (23:00)
[2020-06-21] MEDS ORDERED: ePHEDrine 50 MG/ML VIAL SLOW IVP PRN (23:12)
[2020-06-21] MEDS ORDERED: Naloxone HCl 0.4 mg/ml Vial IVP PRN ×2 (23:12)
[2020-06-21] MEDS ORDERED: Lactated Ringer's 500 ML IV PRN (23:12)
[2020-06-21] MEDS ORDERED: diphenhydrAMINE 50 MG/ML VIAL IVP PRN (23:12)
[2020-06-21] MEDS ORDERED: Promethazine HCl 25 MG/ML VIAL IM PRN (23:12)
[2020-06-21] MEDS ORDERED: Ondansetron PF 4 MG/2 ML Vial IVP PRN (23:12)
[2020-06-21] MEDS ORDERED: Acetaminophen 325 MG TAB PO PRN (23:12)
[2020-06-21] MEDS ORDERED: Fentanyl 4 mcg/Bupivacaine 0.1% Cassette 100 ML EPIDURAL SCH (23:15)
[2020-06-21] MEDS ORDERED: Communication Order-Pharmacy FS SCH (23:15)
[2020-06-22] MEDS: hydrOXYzine 10 MG TAB PO PRN (01:45)
[2020-06-22] MEDS: Pen G 2.5 MILL.UNITS/50 ML BAG IVPB SCH ×2 (01:50→05:53)
[2020-06-22] MEDS: Lactated Ringer's 1,000 ML IV SCH ×2 (03:55→05:56)
[2020-06-22] MEDS: Misoprostol 100 MCG TAB VAG SCH ×2 (03:55→05:26)
[2020-06-22] MEDS: Acetaminophen 500 MG TAB PO PRN (05:08)
--- NOTE | 2020-06-22 08:03 | PDOC.BPN ---
- Brief Progress Note Encounter Date: 06/22/20 Encounter Time: 08:01 Pt is unchanged on pitocin x 12 hours with epidural. Because this is an elective induction of labor, the fetus has had a cat1 strip and the amniotic sac is intact, I discussed the possibility to discharge with the patient vs continuing with IOL and AROM/IUPC placement. All questions were answered in detail. Pt is discussing options with and with notify staff of decision.
== END 2020-06-22 14:05 | disposition home or self-care (01) | DRG 833 ==
LOC: L&D 18:40
PROVIDERS: ADMIT Obstetrics & Gynecology; ATTEND Obstetrics & Gynecology
DX: O99.820 Streptococcus B carrier state complicating pregnancy (principal); O99.342 Other mental disorders complicating pregnancy, second trimester; F41.8 Other specified anxiety disorders; O99.343 Other mental disorders complicating pregnancy, third trimester; F32.9 Major depressive disorder, single episode, unspecified; O99.213 Obesity complicating pregnancy, third trimester; E66.9 Obesity, unspecified; O99.283 Endocrine, nutritional and metabolic diseases complicating pregnancy, third trimester; E28.2 Polycystic ovarian syndrome; E03.9 Hypothyroidism, unspecified; M06.9 Rheumatoid arthritis, unspecified; Z3A.39 39 weeks gestation of pregnancy; Z79.899 Other long term (current) drug therapy
CPT/HCPCS: 36415; 80053; 82570; 84156; 85025; 85027; 86780; 86850; 86900; 86901; 87340; 93005; 99284; J1200; J2405; J2540; J2590

== ENCOUNTER 2020-06-23 17:36 | Day surgery (SDC) | payer BC ==
[2020-06-23 18:22] VITALS: BP 133/77; TEMP 98; BMI 39.2
[2020-06-23] MEDS ORDERED: hydrALAZINE 20 MG/ML VIAL SLOW IVP PRN (19:25)
--- NOTE | 2020-06-24 05:59 | PRG ---
DATE OF SERVICE: 06/23/2020 PRIMARY OB: . 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 CHIEF COMPLAINT: Abdominal pain. HISTORY OF PRESENT ILLNESS: The patient is a 34-year-old G2, P0 female with an intrauterine at 39 weeks and 3 days, presenting for uterine contractions that began about 3:45 this afternoon. She reports for a couple of hours, they were about every 5 minutes apart and decided to come in. She does report that her contractions have since spaced and that she has not felt any for about the last hour. Of note, the patient was here for attempted elective induction lasting about 36 hours, and after seeing that it was not progressing well, was discharged home. The patient at the time of discharge was 2 cm dilated. She denies fever or cough. She has been having headaches off and on and reports a light one currently. She denies chest pain, shortness of breath, nausea, vomiting, diarrhea, or constipation. She has had hip problems with the and overall some joint pains with her rheumatoid arthritis. Denies any new rashes. Denies vaginal bleeding or leakage of fluid. PAST MEDICAL HISTORY: Significant for rheumatoid arthritis, PCOS, anxiety, depression, hypothyroidism, and exercise-induced asthma. PAST SURGICAL HISTORY: Includes egg retrieval x2, treatment for kidney stones, and tonsillectomy. SOCIAL HISTORY: Denies drug, alcohol, or tobacco use. ALLERGIES: GADOLINIUM CONTRAST. MEDICATIONS: 1. Baby aspirin. 2. Lovenox. 3. Plaquenil. 4. Hydroxyzine. 5. Levothyroxine. 6. Singulair. 7. Prednisone p.r.n. OB LABS: Diabetes screen of 109. GBS positive. Other tests are unavailable at the time of dictation. REVIEW OF SYSTEMS: Per HPI. PHYSICAL EXAMINATION: VITAL SIGNS: Blood pressure 133/77, heart rate of 100, respiratory rate of 18, temperature 98.0. GENERAL: She appears to be in no acute distress. She is alert, oriented, cooperative, and pleasant to interact with. HEAD: Normocephalic and atraumatic. LUNGS: Clear to auscultation bilaterally. HEART: Has a regular rate and rhythm. ABDOMEN: Gravid, soft, nontender. EXTREMITIES: Nontender, nonedematous. CERVICAL: Per nursing staff is 2 and 50, which is unchanged from discharge yesterday. DIAGNOSTIC STUDIES: heart tracing shows the fetus with a baseline in the 130s with moderate long-term variability, positive 15 x 15 accelerations, no decelerations. Tocometer not showing any contraction pattern. ASSESSMENT AND PLAN: The patient is a 34-year-old, G2, P0 female with an intrauterine at 39 weeks and 3 days, presenting for evaluation for labor. Fetus has a category 1 tracing and reactive NST. The patient has no evidence of labor at this time and has requested discharge home, where she can self-monitor. Job ID: [id number]
== END 2020-06-23 19:21 | disposition home or self-care (01) ==
LOC: L&D/OP 17:36
PROVIDERS: ATTEND Advanced Practice Midwife
DX: O47.1 False labor at or after 37 completed weeks of gestation (principal); M06.9 Rheumatoid arthritis, unspecified; O99.283 Endocrine, nutritional and metabolic diseases complicating pregnancy, third trimester; E28.2 Polycystic ovarian syndrome; E03.9 Hypothyroidism, unspecified; O99.343 Other mental disorders complicating pregnancy, third trimester; F41.9 Anxiety disorder, unspecified; F32.9 Major depressive disorder, single episode, unspecified; O99.513 Diseases of the respiratory system complicating pregnancy, third trimester; J45.909 Unspecified asthma, uncomplicated; O09.813 Supervision of pregnancy resulting from assisted reproductive technology, third trimester; Z3A.39 39 weeks gestation of pregnancy; Z79.82 Long term (current) use of aspirin; Z79.899 Other long term (current) drug therapy; Z91.013 Allergy to seafood; Z91.041 Radiographic dye allergy status
CPT/HCPCS: 99282

== ENCOUNTER 2020-07-14 16:04 | Day surgery (SDC) | payer BC ==
[~2020-07-14 16:04] MED LIST changes: -Bupivacaine/Epinephrine 0.25% 30 ML VIAL ONE; +Dexamethasone 20 MG/5 ML VIAL ONE; +Ketorolac Tromethamine 30 MG/ML VIAL ONE; +Lidocaine 1% PF 5 ML VIAL ONE; +Ondansetron PF 4 MG/2 ML Vial ONE; +PHENYLEPHRINE-NS 100 MCG/ML 10 ML SYRINGE ONE; +PROPOFOL 200 MG/20 ML VIAL ONE; +Succinylcholine 200 MG/10 ml SYRINGE FS ONE
[2020-07-14 16:44] LABS: #Eosinphils 0.1 thou/uL (0.0-0.7); #Lymphocytes 1.6 thou/uL (1.20-3.40); #Monocytes 0.9 thou/uL (0.11-0.59); #Neutrophils 10.2 thou/uL (1.40-6.50); %Basophils 0.3 % (0.0-1.0); %Eosinophils 0.9 % (0.0-10.0); %Lymphocytes 12.4 % (21.0-51.0); %Monocytes 7.1 % (0.0-10.0); %Neutrophils 79.4 % (42.0-75.0); Hemoglobin 10.1 g/dL (12.0-16.0); Mean Corpuscular HGB CONC 33.1 g/dL (32.0-36.0); Mean Corpuscular Hemoglobin 29.7 pg (27.0-31.0); Mean Corpuscular Volume 89.7 fL (78.0-98.0); Mean Platelet Volume 6.8 fL (7.4-10.4); Platelet Count 374 thou/uL (130-400); RBC Distribution Width 12.5 % (11.5-14.5); Red Blood Cell (RBC) Count 3.42 mill/uL (4.20-5.40); White Blood Cell (WBC) Count 12.8 thou/uL (4.8-10.8)
--- NOTE | 2020-07-14 17:34 | ULT ---
Pelvic sonogram transabdominal imaging with duplex evaluation HISTORY: Heavy vaginal bleeding with clots. Vaginal delivery 07/06/2020. FINDINGS: Urinary bladder is decompressed. Uterus has a heterogeneous echotexture and measures up to 15.2 cm. Endometrium is thickened with heterogeneous echogenicity and fluid, measuring up to 5.4 cm thickness. Some internal flow is seen upon Doppler interrogation. Right ovary is 4.3 cm length and left ovary 4.0 cm. Each has a normal appearance with good color and spectral Doppler flow. IMPRESSION : Echogenic debris and fluid expanding the endometrial cavity with internal flow. Appearance of retaine d products of conception.
[2020-07-14] MEDS ORDERED: Methylergonovine 0.2 MG/ML VIAL IM SCH (18:15)
[2020-07-14] MEDS ORDERED: Lactated Ringer's 1,000 ML IV SCH (18:15)
[2020-07-14] MEDS ORDERED: cefTRIAXone\\ROCEPHIN 1 GM in Sodium Chloride 0.9% 100 ML IVPB SCH (18:15)
[2020-07-14] MEDS ORDERED: Midazolam HCl 2 mg/2 ml Vial ONE (18:30)
[2020-07-14] MEDS ORDERED: Fentanyl 100 MCG/2 ML VIAL ONE (18:30)
[2020-07-14] MEDS ORDERED: Lidocaine 2% Jelly 5 ML TUBE ONE (18:30)
--- NOTE | 2020-07-14 18:52 | PDOC.BPN ---
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 Sloane mchugh aware. PLAN: I have discussed with OR and Anesthesia. Patient on Lovenox for RA and this was addressed with her. OK to continue PP as directed previously for VTE prophylaxis. I have ordered T&C for 2 but we will hoild until necessary. Due to her anxiety situation, goal is to send home so she can be with family if stable after the D&C. methergine given in ED. She trested pos for COVID 05/08/20 so will not retest
[2020-07-14] MEDS ORDERED: Misoprostol 200 MCG TAB ONE (18:55)
[2020-07-14] MEDS ORDERED: Morphine 4 MG/ML VIAL SLOW IVP PRN (19:19)
[2020-07-14] MEDS ORDERED: HYDROcodone/Acetaminophen 5/325 mg Tablet PO PRN (19:19)
--- NOTE | 2020-07-14 19:32 | HP ---
TIME OF EVALUATION: At bedside was roughly at 181. LOCATION: ER bed 18. This is a patient of Sloane Guadarrama. CHIEF COMPLAINT: Heavy vaginal bleeding that started today, although has been going on for most of this week. HISTORY OF PRESENT ILLNESS: In brief, this is a 34-year-old, G1, P1 now who delivered about eight days ago with Sloane Guadarrama. She states that this delivery was complicated by two inductions in the long labor, but she did eventually have her delivery and then received "a shot" in her thigh for bleeding. She states that she had some vaginal bleeding that day and then it stopped and then earlier this week, vaginal bleeding occurred again, but today it increased in severity to the point where she was passing clots upon standing. Her brought her to the ER for evaluation. She denies any loss of consciousness or chest pain according to the ER provider. I was called because the ultrasound ordered by the ER provider showed what looks like retained products of conception inside the uterus with the uterine size of around 15 and a lot of hypervascularity/flow inside the cavity. I was also called because she was having active vaginal bleeding with a pulse of 100. PAST MEDICAL HISTORY: Patient has a history of rheumatoid arthritis for some time. MEDICATIONS: Include, 1. Plaquenil b.i.d. 2. She is also on prednisone p.r.n. 3. She is also on Lovenox, which was given to her for the period. She is on this once a day, so she is on a prophylactic dose. ALLERGIES: TO IODINE CONTAINING CONTRAST MEDIUM, WHICH GIVES HER HIVES, BUT NO RESPIRATORY ISSUES. PAST SURGICAL HISTORY: Includes her IVF procedure/egg retrieval as well as tonsils as a child. PAST PSYCHOSOCIAL HISTORY: Denies alcohol, tobacco, and drug use, but she does have a history of severe anxiety syndrome and has a prescription for medications, but is not on medication now. PHYSICAL EXAMINATION: VITAL SIGNS: I was called that the patient's heart rate was initially 100. When I was in the room, patient's heart rate went to 112 to 117 (unsure if this was from the bleeding or from her anxiety as the patient was quite distraught). Blood pressure was otherwise within normal limits. She is afebrile with a T-max of 99.0. GENERAL: She is no acute distress, but is having what looks like possibly a minor anxiety episode. ABDOMEN: Slightly obese, but is otherwise nontender per ER/ED evaluation/provider. GENITOURINARY: I evaluated the patient's vulvovaginal area and she did have some small clots being passed, but she was not really tolerating a vaginal exam. I suspect this is more because of her anxiety. Ultrasound in the ER with a previously discussed with what looks like retained products of conception. LABORATORY DATA: The patient's hematocrit value was 30.7, platelets are normal at 374, and there is no leukocytosis. Interventions ordered. I have called Anesthesia and I have talked to Ciro with Anesthesia and we are awaiting OR availability as there are other cases going on. ASSESSMENT: Possible retained POC at 8 days , last used lovenox at 0030 this AM...she takes that for immobility per , not DVT hx or thrombophilia. PLAN: Patient needs D&C based on amount of vag bleed and clots. Currently stable but with pulse 100. Afebrile. I have ordered a type and cross for 2 units. I have ordered methergine at 0.2 mg IM x1 as a uterine constrictor to try to expel clots if we have any undue time delay in getting to the OR. I have ordered 1 L LR hydration. I have given her informed consent about the D and C procedure and she had questions about future fertility. I did tell her that fertility was very low as the risk with this procedure. I did discuss with her that we would likely send her home if she was clinically stable after this procedure or at most we will keep her overnight for observation. Again, this patient does have a known history of anxiety and I believe the diagnosis of retained products of conception may have slightly triggered an anxiety episode. I have notified Sloane Guadarrama of the patient's status that she is aware. For now, we are awaiting OR availability for suction D&C and I have discussed the case with anesthesia and ultrasound. Job ID: [id number] [facility]
[2020-07-14] MEDS ORDERED: cefTRIAXone\\ROCEPHIN 1 GM VIAL ONE (19:48)
[2020-07-14] MEDS ORDERED: Meperidine HCl/PF 25 MG/ML VIAL SLOW IVP PRN ×2 (20:05)
[2020-07-14] MEDS ORDERED: HYDROmorphone 2 MG/ML VIAL SLOW IVP PRN (20:05)
[2020-07-14] MEDS ORDERED: Promethazine HCl 25 MG/ML VIAL SLOW IVP PRN (20:05)
[2020-07-14] MEDS ORDERED: Ondansetron HCl/PF 4 MG/2 ML Vial IVP PRN (20:05)
[2020-07-14] MEDS ORDERED: Promethazine HCl 25 MG/ML VIAL IM PRN (20:05)
--- NOTE | 2020-07-14 20:20 | ULT ---
Obstetric sonogram Limited HISTORY: Retained products of conception. D&C. FINDINGS: Sonographic imaging was provided during D&C procedure as performed by Dr. Nunez. Images gabe w echogenicity consistent with surgical device in the endometrial cavity. Final image shows that the echogenic debris of the endometrial cavity has removed.
[2020-07-14] MEDS ORDERED: Acetaminophen 500 MG TAB ONE ×2 (20:46)
--- NOTE | 2020-07-14 21:11 | OP ---
DATE OF PROCEDURE: 07/14/2020 This is the D and C (nonobstetric). PREOPERATIVE DIAGNOSIS: This is a patient who is 8 days who had active vaginal bleeding with suspected retained products based on ultrasound. POSTOPERATIVE DIAGNOSES: 1. This is a patient who is 8 days who had active vaginal bleeding with suspected retained products based on ultrasound. 2. Status post suction D and C with evidence of retained products. PROCEDURE PERFORMED: OB suction D and C under transabdominal ultrasound guidance by the ultrasound department ([facility]). 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 ANESTHESIA: General. IV FLUIDS: 1 L. URINE OUTPUT: About 500 mL in and out urine. ANTIBIOTICS: Rocephin 1 g IV. ESTIMATED BLOOD LOSS: About 800 mL. Although, some of that were blood clots that were expressed before we even started and were in the vagina that was about maybe 150 to 200 mL. PATHOLOGY: Two vacutainers of products of conception/retained placenta. COMPLICATIONS: None. COUNTS: Correct. FINDINGS: The entire procedure was done under transabdominal ultrasound. We were able to confirm echogenic material preprocedure and then we confirmed an endometrial stripe at the end of the procedure. This was done with Sonali (the gallery or museum technician). PROCEDURE/TECHNIQUE: After proper informed consent was explained to the patient by me, we transported her to the OR room D and placed her in candy-cane lithotomy. This was done while preventing deep hyperflexion and external rotation. The patient's vulva, vagina, and lower pelvis were prepped and draped in the usual sterile fashion. In- and out catheterization of the bladder revealed about 500 mL of clear urine. A Graves bivalve speculum was placed into the vagina and about 150 to 200 mL of blood and clot were expelled from the uterine cavity. We then proceeded to suction curettage using a vacuum pressure of 40 mmHg using a #8 curved curette as well as a #10 curved curette. This was all done during transabdominal ultrasound, so we were sure not to have a perforation and we were sure to have an endometrial stripe at the end of the procedure. We did fill two containers full of material and that was sent to Pathology. She remained hemodynamically stable in the OR without evidence of tachycardia, and so we did not feel that blood products were necessary. In the OR at the completion of the case, I did call Nate at [phone], which is his cell number. This is the patient's , who gave his permission to give him an update. I did reassure him that she was well and that the procedure definitely was indicated based on what we found. I did recommend that she stop her Lovenox because she does not have a history of DVT and according to Nate, she was on Lovenox because she was not very mobile after delivery. I did ensure that she did not have a thrombophilia according to Nate. I did recommend that she follow up with Sloane Guadarrama at the end of this week. Disposition is to recovery room in good and stable condition. No discharge antibiotics as Rocephin given in OR. Job ID: [id number] [facility]
--- NOTE | 2020-07-14 22:06 | PDOC.BPN ---
- Brief Progress Note POSTOP Case discussed with RR RN as I am in L&D attending to other patients: Vitals stable with no further VB. Cytotec 600mcg placed CA at end of case so this may be helping with ut contraction. OK for home with follow up with Becca Guadarrama by end of week.
== END 2020-07-14 22:00 | disposition home or self-care (01) ==
LOC: ERS 16:04 → SDC 19:00
PROVIDERS: ATTEND Obstetrics & Gynecology
PROC: 10D17ZZ Extraction of Products of Conception, Retained, Via Natural or Artificial Opening (ICD-10-PCS; principal; 2020-07-14)
DX: O72.2 Delayed and secondary postpartum hemorrhage (principal); Z79.899 Other long term (current) drug therapy; Z91.013 Allergy to seafood; Z91.041 Radiographic dye allergy status
CPT/HCPCS: 36415; 76856; 76857; 85025; 86850; 86900; 86901; 88305; 93976; 96372; J0696; J1100; J1885; J2210; J2250; J2405; J2704; J3010